=== PATIENT | female | born 1935 | race Two or more races ===

== ENCOUNTER → 2017-03-24 | Day surgery (SDC) | payer SELFPAY ==
[~2017-03-24] VITALS: Ht 152.4 cm; Wt 59.0 kg
[~2017-03-24] MED LIST: ALUM & MAG HYDROX-SIMETH LIQ(MAALOX) 30 ML PO ONE; AMIODARONE HCL (50 MG/ ML) 3 ML VIAL IV ONE; ANGIOMAX 250 MG VIAL IV ONE; ASPirin 81 mg TAB PO ONE; ATROPINE SULF 0.5 MG/5ML SYR IV ONE; CALCIUM CHLOR(10%) 100MG/ML 10ML SYRINGE IV ONE; D5W IV ONE; DONNATAL 5ml ORAL Elix (BELLADONNA ALK-PHENOBARB) PO ONE; DOPAMINE IV ONE; EPINEPHrine HCL 1 MG/10 ML SYRG IV ONE; EPTIFIBATIDE INJ (2MG/ML) 10ML VIAL IV ONE; ETOMIDATE (2MG/ML) 20ML VIAL IV ONE; IODIXANOL 320MG/ML 100ML BTL IV ONE; LIDOCAINE 2%HCL (LOCAL ANESTH.) INJ 20ML MDV ONE; LIDOCAINE VISCOUS 2% 15ML UD PO ONE; MAGNESIUM SULF 50% 40 MEQ/10 ML VL IV ONE; MIDAZOLAM DRIP 50 mg/50mL 0 ML IV ONE; MIDAZOLAM HCL 1MG/1ML-2 ML VIAL ONE; PANTOPRAZOLE 40 MG/10 ML VIAL IV ONE; SODIUM BICARBONATE 8.4% INJ 50ML SYRINGE IV ONE; SODIUM CHL 0.9% 0 ML ONE; SODIUM CHL 0.9% 50 ML ONE; SODIUM CHLORIDE 0.9% 1,000 ML IV ONE; SUCCINYLCHOLINE CHLORIDE 20 MG/ML 10ML VIAL IV ONE; fentaNYL CITRATE 100 MCG/2 ML VL ONE
[2017-03-24 12:09] VITALS: BP 140/82
[2017-03-24 12:37] LABS: Basophils # (auto) 0 uL; Basophils % (auto) 0.3 % (0.0-2.0); CONDITION Y; Eosinophils # (auto) 0.1 uL; Eosinophils % (auto) 0.7 % (0.0-7.0); Hematocrit 44.3 % (36.0-46.0); Hemoglobin 14.8 g/dL (12.2-16.2); Lymphocytes # (auto) 1.5 uL; Lymphocytes % (auto) 10.8 % (10.0-50.0); Mean Corpuscular Hemoglobin 28.4 pg (28.0-32.0); Mean Corpuscular Hgb Conc. 33.4 g/dL (32.0-36.0); Mean Corpuscular Volume 85.2 fL (80.0-100.0); Mean Platelet Volume 8.8 fL (7.4-10.4); Monocytes # (auto) 0.2 uL; Monocytes % (auto) 1.4 % (0.0-12.0); Neutrophils # (auto) 12.2 uL; Neutrophils % (auto) 86.8 % (37.0-80.0); Platelet Count (auto) 391 10^3/uL (140-450); Red Cell Distribution Width 14.5 % (11.6-16.0)
[2017-03-24 13:28] LABS: Urine Bilirubin Negative (Negative); Urine Blood Negative /uL (Negative); Urine Color Yellow (Yellow); Urine Glucose Normal (Normal); Urine Ketone Negative (Negative); Urine Nitrite Negative (Negative); Urine RBC <1 /hpf (0 - 4); Urine Squamous Epithelial Cell FEW /hpf (<5); Urine Urobilinogen Normal (Negative); Urine pH 7.5 (5.0-8.0)
[2017-03-24 14:01] LABS: Albumin 4.2 g/dL (3.4-5.0); Bilirubin, Total 0.5 mg/dL (0.2-1.0); Calcium 9.4 mg/dL (8.5-10.1); Magnesium 2.1 mg/dL (1.6-2.6); Potassium 3.5 mmol/L (3.5-5.1); Total Protein 8.5 g/dL (6.4-8.2)
== END ==
LOC: ER 11:43 → CATH 11:44
PROVIDERS: ATTEND Internal Medicine Cardiovascular Disease
DX: Z53.8 Procedure and treatment not carried out for other reasons (principal); I10 Essential (primary) hypertension; E11.9 Type 2 diabetes mellitus without complications
CPT/HCPCS: 36415; 71020; 74176; 80053; 81001; 82962; 83690; 83735; 84484; 85025; 93005; C1894; C9113; J0171; J0282; J0461; J0583; J1265; J1644; J2250; J3010; J7030; Q9967; J0330